=== PATIENT | female | born 1960 | race Caucasian/White ===

== ENCOUNTER → 2016-10-23 | Outpatient (CLI) | payer BC ==
[2016-10-23 16:51] VITALS: BP 153/84
== END ==
LOC: MHUC 10:37
PROVIDERS: ATTEND Physician Assistant
DX: J09.X2 Influenza due to identified novel influenza A virus with other respiratory manifestations (principal)
CPT/HCPCS: 99213

== ENCOUNTER → 2016-11-16 | Outpatient (CLI) | payer BC ==
[2016-11-16 14:19] LABS: ALBUMIN 4.2 g/dL (3.4-5.0); ANION GAP 12.4 MEQ/L (3-15); PHOSPHORUS 4.6 mg/dL (2.4-4.9)
== END ==
LOC: LAB 13:38
PROVIDERS: ATTEND Internal Medicine
DX: R03.0 Elevated blood-pressure reading, without diagnosis of hypertension (principal); E83.51 Hypocalcemia
CPT/HCPCS: 36415; 80069

== ENCOUNTER → 2016-11-21 | Outpatient (CLI) | payer BC | LOC: RAD 09:44 | PROVIDERS: ATTEND Obstetrics & Gynecology | DX: Z12.31 Encounter for screening mammogram for malignant neoplasm of breast (principal) ==

== ENCOUNTER → 2017-01-20 | Outpatient (CLI) | payer BC ==
[~2017-01-20] MED LIST: AMOX-358 PO; CALC-51 PO; CALC-815 PO; CALC0.253 PO; LEVO50TA PO; LVT.1T PO; MAALIDOBEN PO; MAGN400T26 PO; OSLT75C PO
[2017-01-20 09:49] VITALS: BP 155/94
--- NOTE | 2017-01-20 09:49 | Urgent Care T Sheet Gen (E) ---
Intake General Temperature (Fahrenheit): 100.8 Pulse: 100 Blood Pressure Systolic: 155 Blood Pressure Diastolic: 94 Respirations: 20 SPO2: 95 Chief Complaint: Sore throat, facial pain Description of Symptoms 56 year old female presents with sore throat, fever, and muscle aches. Pt states symptoms started . States she was in [place] and sx became so severe they drove home. States she has facial pain and post nasal drip. Denies rhinorrhea. States post nasal drip is dark in color. Denies cough, chest pain, or shortness of breath. Has been taking OTC Mucinex D. Source: Patient Exam Limitations: No limitations History of Present Illness Onset & Duration: Days (2) Timing: Worse Severity: Severe Pain Intensity: 8 Modifying Factors: Eating, Medication, Rest Associated Symptoms: Fever/Chills, Malaise, Nasal congestion, Sinus congestion Recent Trauma: No Similar Sympotms Previously: Yes Prior Treatment: Other (No recent treatment) Allergies: Coded Allergies: No Known Allergies (Verified Allergy, 04/04/13) Home Meds Active Scripts Diphenhydramine HCl (Maalox/Lidocaine/Benadryl Oral Solution)30 Ml Soln5-10 Ml PO QID PRN PAIN #180 ML Swish, gargle and spit 5- 10 ml every 6 hours as needed for pain Prov:ANGELITA REYNOSO APRN 01/20/17 Amoxicillin/Clavulanate Potassium (Augmentin 875mg/125mg)1 Each Tablet1 Each PO BID Infection #20 TAB Ref 0 Prov:ANGELITA REYNOSO APRN 01/20/17 Oseltamivir Phosphate (Tamiflu)75 Mg [id number] Mg PO BID Infection #10 CAP Ref 0 Prov:JAZLYN COLON 10/23/16 Reported Medications Calcitriol 0.25 Mcg Capsule0.25 Mcg PO DAILY 09/15/15 Levothyroxine Sodium (Synthroid)50 Mcg [id number] Mcg PO Sunday, 04/06/13 Calcium Citrate/Vitamin D3 (Calcium Citrate - Vit D Caplet)1 Each Tablet2 Each PO Four times daily 04/04/13 Levothyroxine Sodium 100 Mcg [id number] Mcg PO Sun,Sun,Sun,Sat,Sun Take on Sunday, Sunday, Sunday, Sunday, Sunday04/04/13 Respiratory Constitutional Symptoms: ChillsNo Diaphoresis, Fever Malaise Weakness EENTM: No Eye pain, No Blurred vision, No Eye tearing, No Double Vision, No Ear pain, No Ear discharge, No Nose Pain, Nose Congestion (head feels full and has facial pain) Throat pain (Able to manage secretions, no stridor, hurts to swallow)No Throat swelling, No Mouth Pain, No Mouth Swelling Respiratory: No Cough, No Short of breath, No Stridor, No Wheezing Cardiovascular: No Chest pain, No Edema, No Palpitations Gastrointestinal/Abdominal: No Abdominal pain, No Constipation, No Diarrhea, No Nausea, No Vomiting Musculoskeletal: Muscle pain (feels achy)No Gout, No Joint pain, No Joint swelling, No Neck pain Skin: No Change in color, No Lesions, No Rash Neurological: Headache (Feels like pressure) Immunologic/Allergies: No symptoms reported All Other Systems Reviewed Remaining Systems: All other systems reviewed with negative findings Past [id number] Hx Patient's Social History Infectious Disease Exposure: No Recent foreign travel: No Surgeries/Hospitalizations Hospitalization/Surgery Hx: THYROID REMOVED march 2011 HYSTERECTOMY may 2012 hysteroscopy and ablation Respiratory Respiratory History: None Cardiovascular Cardiovascular History: Palpitations Neuro/Muscular Neuro/Muscular History: Back Problems, Visual impairment Reproductive System Sexually Transmitted Diseases: No Genitouinary Genitourinary History: None Gastrointestinal GI/Endocrine History: Thyroid disorder Comment: c-diff 2014 Diabetes Diabetes: No HEENT Impaired Vision: Glasses Hearing Impaired: None Integumentary Integumentary History: None Cancer History of Cancer?: No Psychosocial Behavior Disorders: None Blood Transfusions Hx of Blood transfusions: No Physical Exam Physical Exam General Appearance: WD/WN Moderate distress (Painful expression with swallowing) Eyes, Ears, Nose, Throat Ex: PERRL/EOMI TMs normal Pharyngeal erythema ( Tonsil +2, managing secretions, patent airway) Tonsillar exudate Other (Frontal and Maxillary sinus TTP) Neck Exam: Full range of motion Supple Lymphadenopathy (anterior cervical chain) Other (Thyroid absent) Respiratory Exam: Chest non-tender Lungs clear Normal breath sounds No respiratory distress No accessory muscles used Cardiovascular Exam: Regular rate, rhythm (borderline tachycardiac) No edema No gallop No JVD No murmur GI/ Exam: Non tender No organomegaly Normal bowel sounds No distention Skin Exam: Normal color Warm/dry/intact No rashes Extremity Exam: Non-tender Full range of motion Normal capillary refill No pedal edema No calf tenderness Neurologic/Psychiatric Exam: Oriented times 4 No motor deficits No sensory deficits Mood/affect nml Departure Urgent Care Impression Chief Complaint: Sore throat, facial pain Impression: Primary Impression: Pharyngitis Qualified Code: J02.9 - Acute pharyngitis, unspecified Additional Impression: Sinusitis chronic, frontal Departure Disposition: HOME OR SELF-CARE Condition: Stable Referrals: JUAN J BLANCO MD (PCP) Additional Instructions: Advised Patient to follow up in one week with PCP regarding elevated blood pressure. Advised to discontinue use of decongestants. Offered rapid strep test, pt declined. Discussed that given her elevated temperature, chills, malaise, and facial pain will treat and cover both sinusitis and strep pharyngitis. Pt's centor score = 3 giving her a 28-35% of strep Pharyngitis. Augmentin 875/125 mg po BID x 10 days, opted for 10 day treatment given possibility of strep. Advised of ADR including diarrhea. Advised use of saline rinses BID. Use of Flonase daily. Advised use of Naprosyn for pain. Magic mouth wash use explained 5- 10 ml swish, gargle and spit q 6 hours prn. Scripts Diphenhydramine HCl (Maalox/Lidocaine/Benadryl Oral Solution)30 Ml Soln5-10 Ml PO QID PRN PAIN #180 ML Swish, gargle and spit 5- 10 ml every 6 hours as needed for pain Prov:ANGELITA REYNOSO APRN 01/20/17 Amoxicillin/Clavulanate Potassium (Augmentin 875mg/125mg)1 Each Tablet1 Each PO BID Infection #20 TAB Ref 0 Prov:ANGELITA REYNOSO APRN 01/20/17 End of report . ANGELITA REYNOSO APRN January 20, 2017 09:49
== END ==
LOC: MHUC 09:01
PROVIDERS: ATTEND Nurse Practitioner Family
DX: J02.9 Acute pharyngitis, unspecified (principal); J32.1 Chronic frontal sinusitis
CPT/HCPCS: 99213